=== PATIENT | female | born 1965 | race Caucasian/White ===

== ENCOUNTER 2021-03-07 13:58 | Inpatient (IN) | payer BC ==
[~2021-03-07] VITALS: Ht 167.6 cm; Wt 97.5 kg
[2021-03-11] MEDS ORDERED: AMLODIPINE-BEN1 EACH PO (00:01)
[2021-03-11] MEDS ORDERED: GLUCOPHAGE XR500 M1 PO (00:03)
[2021-03-11] MEDS ORDERED: TENORMIN 25 MG25 MG PO (00:03)
[2021-03-11 04:13] LABS: HEMOGLOBIN 10.5 gm/dl (12.3-15.3); RED BLOOD COUNT 3.57 M/UL (4.00-5.10); WHITE BLOOD COUNT 6.6 K/UL (4.5-11.0)
[2021-03-11 04:30] LABS: BUN/CREATININE RATIO 12 (0-10)
[2021-03-11] MEDS ORDERED: HYDROCHLOROTH12.5 MG PO (12:46)
[2021-03-11] MEDS ORDERED: BIOTIN800 MCG PO (12:47)
[2021-03-11] MEDS ORDERED: APPLE CIDER VI500 MG PO (12:47)
[2021-03-12 06:33] LABS: HEMOGLOBIN 10.8 gm/dl (12.3-15.3); RED BLOOD COUNT 3.71 M/UL (4.00-5.10); WHITE BLOOD COUNT 7.2 K/UL (4.5-11.0)
[2021-03-12 07:15] LABS: BUN/CREATININE RATIO 13 (0-10)
[2021-03-13 05:48] LABS: HEMOGLOBIN 9.6 gm/dl (12.3-15.3); RED BLOOD COUNT 3.39 M/UL (4.00-5.10); WHITE BLOOD COUNT 7.1 K/UL (4.5-11.0)
[2021-03-13 06:29] LABS: BUN/CREATININE RATIO 14 (0-10)
[2021-03-14 06:42] LABS: HEMOGLOBIN 10.4 gm/dl (12.3-15.3); RED BLOOD COUNT 3.58 M/UL (4.00-5.10); WHITE BLOOD COUNT 7.4 K/UL (4.5-11.0)
[2021-03-14 07:19] LABS: BUN/CREATININE RATIO 18 (0-10)
[2021-03-15 06:29] LABS: HEMOGLOBIN 11.1 gm/dl (12.3-15.3); RED BLOOD COUNT 3.84 M/UL (4.00-5.10)
[2021-03-15 06:32] LABS: WHITE BLOOD COUNT 9.3 K/UL (4.5-11.0)
[2021-03-15 06:49] LABS: BUN/CREATININE RATIO 15 (0-10)
[2021-03-16 07:12] LABS: BUN/CREATININE RATIO 16 (0-10)
[2021-03-16 16:57] LABS: HEMOGLOBIN 11.6 gm/dl (12.3-15.3); RED BLOOD COUNT 3.93 M/UL (4.00-5.10); WHITE BLOOD COUNT 10.3 K/UL (4.5-11.0)
--- NOTE | 2021-03-17 06:09 | NUR ---
DID NOT GIVE 0600 DOSE OF VANC DUE TO NOT HAVING RECEIVED VANC TROUGH YET.
[2021-03-17 06:12] LABS: HEMOGLOBIN 10.9 gm/dl (12.3-15.3); RED BLOOD COUNT 3.71 M/UL (4.00-5.10); WHITE BLOOD COUNT 8.4 K/UL (4.5-11.0)
[2021-03-17 07:01] LABS: BUN/CREATININE RATIO 16 (0-10)
--- NOTE | 2021-03-17 14:22 | NUR ---
report given to admitting nurse at [facility] c/o gema.
== END 2021-03-17 17:50 | disposition short-term general hospital (02) | DRG 299 ==
LOC: M/S 03-10 23:55
PROVIDERS: Internal Medicine; Physician Assistant; ADMIT Internal Medicine
DX: E11.52 Type 2 diabetes mellitus with diabetic peripheral angiopathy with gangrene (principal); A48.0 Gas gangrene; L03.115 Cellulitis of right lower limb; Z20.822 Contact with and (suspected) exposure to COVID-19; I83.019 Varicose veins of right lower extremity with ulcer of unspecified site; I10 Essential (primary) hypertension; E11.628 Type 2 diabetes mellitus with other skin complications; E11.65 Type 2 diabetes mellitus with hyperglycemia; Z79.82 Long term (current) use of aspirin; Z79.4 Long term (current) use of insulin; Z82.49 Family history of ischemic heart disease and other diseases of the circulatory system
CPT/HCPCS: 36415; 73718; 80048; 80053; 80202; 82962; 83036; 85025; 85027; 85652; 86140; 87040; 93005; 93926; J1644; J1650; J2250; J2543; J3010; J3370; J7050; J7070; U0002